=== PATIENT | female | born 1975 | race Caucasian/White ===

== ENCOUNTER 2017-11-16 08:11 | Emergency (ER) | END 2017-11-16 11:03 | disposition home or self-care (01) ==

== ENCOUNTER 2017-12-12 08:52 | Emergency (ER) | END 2017-12-12 09:55 | disposition home or self-care (01) ==

== ENCOUNTER 2018-08-29 10:40 | Emergency (ER) | END 2018-08-29 15:28 | disposition home or self-care (01) ==

== ENCOUNTER 2018-10-21 13:35 | Emergency (ER) | payer SELFPAY ==
[~2018-10-21] VITALS: Ht 167.6 cm; Wt 88.2 kg
[~2018-10-21 13:35] MED LIST: ACET325T33 PO; ASPI-831 PO; ATOR10TA65 PO; CLIN300C10 PO; DOCU-144 PO; HYDR-4011 PO; IBUP-1542 PO; ONDA4TAB14 PO; TOPI25TA PO
[2018-10-21 13:38] VITALS: BP 140/93; PULSE 67; RESP 20; Ht 167.6 cm; Wt 88.2 kg
== END 2018-10-21 16:14 | disposition left against medical advice (07) ==
LOC: FTE 13:35
DX: Z53.21 Procedure and treatment not carried out due to patient leaving prior to being seen by health care provider (principal)

== ENCOUNTER 2019-01-18 19:04 | Emergency (ER) | payer OTHER ==
[~2019-01-18] VITALS: Ht 157.5 cm; Wt 86.7 kg
[2019-01-18 19:10] VITALS: Ht 157.5 cm; Wt 86.7 kg
[2019-01-18] MEDS ORDERED: predniSONE 20 MG TAB PO ONE (21:00)
[2019-01-18] MEDS ORDERED: FAMOTIDINE 20 MG TAB PO ONE (21:00)
[2019-01-18] MEDS ORDERED: KETOROLAC 30 MG INJ IV STA (21:02)
[2019-01-18] MEDS ORDERED: SOD CHLORIDE 0.9% 1,000 ML IV ONE (21:30)
[2019-01-18] MEDS ORDERED: METOCLOPRAMIDE 10 MG INJ IV ONE (21:30)
[2019-01-18] MEDS ORDERED: DIPHENHYDRAMINE 50 MG INJ IM ONE (21:30)
--- NOTE | 2019-01-18 22:02 | ERD ---
ER Documentation Chief Complaint Chief Complaint states migraine headache x 3 days HPI 43-year-old female presents with complaint of migraine headache x3 days. Patient has history of previous migraine headaches previously on Topamax for preventive medications states to have run out of Topamax 2 weeks ago. Patient currently trying Tylenol for relief of migraine headache with no improvement. Admits to positive nausea, photophobia, sensitive to sounds, denies vomiting. She rates pain as 7 out of 10 in intensity and notes presentation similar to previous migraines. Patient also notes previous history of stroke in 2010 with residual left-sided deficits. She notes deficits increase with each migraine episode. Per patient family patient currently at baseline mental status. ROS All systems reviewed and are negative except as per history of present illness. Medications Home Meds Active Scripts Topiramate* (Topamax*) 25 Mg Tablet, 25 MG PO BID for migraine, #30 TAB Prov:KIMBERLYN PICHARDO PA-C 01/18/19 Ondansetron (Ondansetron Odt) 4 Mg Tab.rapdis, 4 MG PO Q6H PRN for NAUSEA AND/OR VOMITING, #10 TAB Prov:DUSTIN HOLDEN PA-C 08/29/18 Hydrocodone/Acetaminophen ([place] 5-325 Tablet) 1 Each Tablet, 1 TAB PO QHS PRN for PAIN, #7 TAB Prov:DUSTIN HOLDEN PA-C 08/29/18 Ibuprofen* (Motrin*) 600 Mg Tab, 600 MG PO Q6, #30 TAB Prov:DUSTIN HOLDEN PA-C 08/29/18 Acetaminophen* (Tylenol*) 325 Mg Tablet, 2 TAB PO Q4 PRN for PAIN AND OR ELEVATED TEMP, #30 TAB Prov:CHENTE SUAZO PA-C 12/12/17 Clindamycin Hcl* (Clindamycin Hcl*) 300 Mg Capsule, 300 MG PO TID for 7 Days, CAP Prov:CHENTE SUAZO PA-C 12/12/17 Docusate Sodium* (Colace*) 100 Mg Capsule, 100 MG PO TID, #30 CAP Prov:DUSTIN HOLDEN PA-C 11/16/17 Hydrocodone/Acetaminophen (B[place] 5-325 Tablet) 1 Each Tablet, 1 TAB PO QHS PRN for PAIN, #5 TAB Prov:DUSTIN HOLDEN PA-C 11/16/17 Topiramate* (Topamax*) 25 Mg Tab, 50 MG PO DAILY for 28 Days, BOTTLE Prov:PADMINI JENSEN MD 07/19/15 Atorvastatin Calcium (Atorvastatin Calcium) 10 Mg Tab, 10 MG PO HS for 28 Days, TAB Prov:PADMINI JENSEN MD 07/19/15 Aspirin (Aspirin) 81 Mg Chew, 81 MG PO DAILY for 28 Days, BOT Prov:PADMINI JENSEN MD 07/19/15 Allergies Allergies: Coded Allergies: Penicillins (Verified Allergy, Unknown, HIVES, 07/16/15) cephalexin (Verified Allergy, Unknown, HIVES, 07/16/15) PMhx/Soc History of Surgery: Yes (back surgery- disectomy, 2 c- section, full hysterectomy, gall blader rose mary) Anesthesia Reaction: Yes (SHAKING POST SURGERY) Hx Neurological Disorder: Yes (CVA 2011) Hx Respiratory Disorders: No Hx Cardiac Disorders: Yes (HTN) Hx Psychiatric Problems: No Hx Miscellaneous Medical Probl: No Hx Alcohol Use: No Hx Substance Use: No Hx Tobacco Use: No Smoking Status: Never smoker Physical Exam Vitals Vital Signs Date Temp Pulse Resp B/P (MAP) Pulse Ox O2 O2 Flow FiO2 Time Delivery Rate 01/18/19 98.0 57 18 112/68 98 Room Air 22:20 (83) 01/18/19 98.5 70 18 153/98 98 19:10 (116) Physical Exam Const: No acute distress Head: Atraumatic Eyes: Normal Conjunctiva. PERRL, EOMI. No visible nystagmus. ENT: Normal External Ears, Nose and Mouth. Neck: Full range of motion. No meningismus. No C-spine tenderness. Resp: Clear to auscultation bilaterally Cardio: Regular rate and rhythm, no murmurs Abd: Soft, non tender, non distended. Normal bowel sounds Skin: No petechiae or rashes Back: No midline or flank tenderness Ext: No cyanosis, or edema Neur: Awake and alert to person place and time. CNII-XII intact. [employer] strength equal. 5 out of 5 strength, DTR 2+, sensation intact and equal throughout. Negative Romberg. Negative pronator drift. Psych: Normal Mood and Affect Results 24 hrs Current Medications Medications Dose Sig/Alex Start Time Status Last (Trade) Ordered Route PRN Stop Time Admin Dose Reason Admin Prednisone 60 mg ONCE ONCE 01/18/19 DC (Prednisone) PO 21:00 01/18/19 21:00 Famotidine 40 mg ONCE ONCE 01/18/19 DC (Pepcid) PO 21:00 01/18/19 21:00 Ketorolac 30 mg ONCE STAT 01/18/19 DC 01/18/19 Tromethamine IV 21:02 21:28 (Toradol) 01/18/19 21:06 10 mg ONCE ONCE 01/18/19 DC 01/18/19 Metoclopramid IV 21:30 21:27 e HCl 01/18/19 21:31 (Reglan) 50 mg ONCE ONCE 01/18/19 DC 01/18/19 Diphenhydrami IM 21:30 21:30 ne HCl 01/18/19 21:31 (Benadryl) Sodium 1,000 ml @ Q1H ONCE 01/18/19 DC 01/18/19 Chloride 1,000 mls/hr IV 21:30 21:27 01/18/19 22:29 Procedures/MDM PROCEDURE: CT Brain without contrast. CLINICAL INDICATION: Migraines for 5 days and prior history of stroke TECHNIQUE: A CT of the brain was performed on a Conjecta CT scanner utilizing axial imaging from the skull base through the vertex without IV contrast. Multiplanar reformatted images were made. Images were reviewed on a PACS workstation. The CTDIvol is 39.46 mGy and the DLP is 634.23 mGycm. DICOM images are available. One of the following 3 dose reduction techniques were used during this CT examination: 1) Automated exposure control 2) Adjustment of the mA +/- kV according to patient size or 3) Use of iterative reconstruction technique COMPARISON: No available prior brain imaging FINDINGS: There is no intracranial hemorrhage, mass effect, or midline shift. No extra- axial fluid collection is seen. The ventricles and sulci are normal in size and configuration. Decreased attenuation is noted in the left anterior medial thalamus compatible with a chronic lacunar infarct. The visualized scalp and calvarium are normal. The bilateral orbits are normal. The bilateral paranasal sinuses, mastoid air cells and middle ear cavities are clear. IMPRESSION: 1. No evidence of acute intracranial hemorrhage, acute infarcts, or acute intracranial pathology 2. Chronic left anterior medial thalamic lacunar infarct MDM: This is a 43-year-old female who presented to the ED with complaint of migraine headache x3 days. Neurological exam unremarkable patient with no focal neuro deficits. However, given history history of previous stroke CT imaging of brain performed, no evidence of acute intracranial hemorrhage or intracranial pathology. She receives migraine cocktail consisting of IV fluids, Toradol, Benadryl, and Reglan. Receiving migraine cocktail patient admitted to im provement in symptoms. At this time patient is stable for discharge home with strict follow-up and ED precautions. Patient given prescription for short course refill of Topamax and advised to follow-up with PCP to obtain a refill of migraine preventive medicine. Patient counseled regarding ED return precautions and advised to present at the onset of any new or worsening symptoms. She expressed verbal understanding and agreement to treatment plan, all questions addressed and answered. Departure Diagnosis: Primary Impression: Migraine Condition: Good KIMBERLYN PICHARDO PA-C Jan 18, 2019 22:02
[2019-01-18] MEDS ORDERED: TOPI25TA PO (22:03)
[2019-01-18 22:20] VITALS: BP 112/68; PULSE 57; RESP 18
== END 2019-01-18 22:21 | disposition home or self-care (01) ==
LOC: FTE 19:04
DX: G43.909 Migraine, unspecified, not intractable, without status migrainosus (principal); I10 Essential (primary) hypertension; Z79.82 Long term (current) use of aspirin
CPT/HCPCS: 70450; 96361; 96372; 96374; 96375; J1200; J1885; J2765; J7030; Z7502

== ENCOUNTER 2019-01-21 07:58 | Emergency (ER) | payer OTHER ==
[~2019-01-21] VITALS: Ht 157.5 cm; Wt 72.0 kg
[2019-01-21 08:02] VITALS: BP 193/92; PULSE 74; RESP 16; Ht 157.5 cm; Wt 72.0 kg
[2019-01-21] MEDS ORDERED: IBUPROFEN 800 MG TAB PO ONE (08:30)
[2019-01-21] MEDS ORDERED: IBUP800T48 PO (09:16)
--- NOTE | 2019-01-21 10:42 | ERD ---
ER Documentation Chief Complaint Chief Complaint pt bib self with c/o right foot pain s/p falling last night at movies+bruis HPI 43-year-old female presenting with right foot pain after a fall at the movies last night. Patient took Tylenol with no alleviation. She has pain to the right great toenail. Patient has a history of migraines and stroke. Surgical history; , cholecystectomy, hysterectomy, back surgery and carpal tunnel.. Social history denies. ROS All systems reviewed and are negative except as per history of present illness. Medications Home Meds Active Scripts Ibuprofen* (Motrin*) 800 Mg Tab, 800 MG PO Q6, #30 TAB Prov:LILIA COLEMAN PA-C 01/21/19 Topiramate* (Topamax*) 25 Mg Tablet, 25 MG PO BID for migraine, #30 TAB Prov:KIMBERLYN PICHARDO PA-C 01/18/19 Ondansetron (Ondansetron Odt) 4 Mg Tab.rapdis, 4 MG PO Q6H PRN for NAUSEA AND/OR VOMITING, #10 TAB Prov:DUSTIN HOLDEN PA-C 08/29/18 Hydrocodone/Acetaminophen ([place] 5-325 Tablet) 1 Each Tablet, 1 TAB PO QHS PRN for PAIN, #7 TAB Prov:DUSTIN HOLDEN PA-C 08/29/18 Ibuprofen* (Motrin*) 600 Mg Tab, 600 MG PO Q6, #30 TAB Prov:DUSTIN HOLDEN PA-C 08/29/18 Acetaminophen* (Tylenol*) 325 Mg Tablet, 2 TAB PO Q4 PRN for PAIN AND OR ELEVATED TEMP, #30 TAB Prov:CHENTE SUAZO PA-C 12/12/17 Clindamycin Hcl* (Clindamycin Hcl*) 300 Mg Capsule, 300 MG PO TID for 7 Days, CAP Prov:CHENTE SUAZO PA-C 12/12/17 Docusate Sodium* (Colace*) 100 Mg Capsule, 100 MG PO TID, #30 CAP Prov:DUSTIN HOLDEN PA-C 11/16/17 Hydrocodone/Acetaminophen ([place] 5-325 Tablet) 1 Each Tablet, 1 TAB PO QHS PRN for PAIN, #5 TAB Prov:DUSTIN HOLDEN PA-C 11/16/17 Topiramate* (Topamax*) 25 Mg Tab, 50 MG PO DAILY for 28 Days, BOTTLE Prov:PADMINI JENSEN MD 07/19/15 Atorvastatin Calcium (Atorvastatin Calcium) 10 Mg Tab, 10 MG PO HS for 28 Days, TAB Prov:PADMINI JENSEN MD 07/19/15 Aspirin (Aspirin) 81 Mg Chew, 81 MG PO DAILY for 28 Days, BOT Prov:PADMINI JENSEN MD 07/19/15 Allergies Allergies: Coded Allergies: Penicillins (Verified Allergy, Unknown, HIVES, 07/16/15) cephalexin (Verified Allergy, Unknown, HIVES, 07/16/15) PMhx/Soc History of Surgery: Yes (back surgery- disectomy, 2 c- section, full hysterectomy, gall blader rose mary) Anesthesia Reaction: Yes (SHAKING POST SURGERY) Hx Neurological Disorder: Yes (CVA 2011) Hx Respiratory Disorders: No Hx Cardiac Disorders: Yes (HTN) Hx Psychiatric Problems: No Hx Miscellaneous Medical Probl: No Hx Alcohol Use: No Hx Substance Use: No Hx Tobacco Use: No Smoking Status: Former smoker FmHx Family History: No diabetes, No coronary disease, No other Physical Exam Vitals Vital Signs Date Temp Pulse Resp B/P (MAP) Pulse Ox O2 O2 Flow FiO2 Time Delivery Rate 01/21/19 98.3 74 16 193/92 98 08:02 (125) Physical Exam GENERAL: The patient is well-appearing, well-nourished, in no acute distress CHEST: Clear to auscultation bilaterally. There are no rales, wheezes or rhonchi. HEART: Regular rate and rhythm. No murmurs, clicks, rubs or gallops. EXTREMITIES: Equal pulses bilaterally. There is no peripheral clubbing, cyanosis or edema. No focal swelling or erythema. Full range of motion. Grossly neurovascularly intact. NEUROLOGIC: Motor strength in all 4 extremities with 5 out of 5 strength. Sensation grossly intact. SKIN: Bruising noted to the right great toe with no lacerations or abrasions. Bruising extends down the medial aspect of the right foot Results 24 hrs Current Medications Medications Dose Sig/Alex Start Time Status Last (Trade) Ordered Route PRN Stop Time Admin Dose Reason Admin Ibuprofen 800 mg ONCE ONCE 01/21/19 DC 01/21/19 (Motrin) PO 08:30 08:17 01/21/19 08:31 Procedures/MDM DIAGNOSTIC IMAGING REPORT Patient: RAAD BATES : 1975 Age: 43 Sex: F [id number] DOS: 01/21/19 0813 Ordering MD: TIFFANIE COLEMAN PA-C Location: [facility] Room/Bed: PROCEDURE: XR Right Foot CLINICAL INDICATION: Pain TECHNIQUE: AP, oblique, and lateral radiographs were submitted. COMPARISON: 05/10/2016 FINDINGS: Osseous structures: appear well mineralized and intact with no fracture or destructive process identified. A small plantar spur is again seen off the calcaneus. Joint spaces: are well maintained, with no significant spurring, erosion or joint effusion evident. Soft tissues: appear unremarkable. IMPRESSION: 1. Small plantar spur again seen off the calcaneus. 2. Otherwise, unremarkable right foot series. ER Course: Social applied. Neuro intact pre-and post shoe application. MDM: 43-year-old female presenting with toe contusion. I have low suspicion for acute fracture dislocation. His x-rays are within normal limits. Patient was discharged with supportive medications and told to follow-up with primary care within 1-2 days for close evaluation. Patient is told if symptoms change or worsen to return immediately to the ER. All questions answered at discharge Departure Diagnosis: Primary Impression: Foot contusion Condition: Stable Patient Instructions: Contusion, Foot Additional Instructions: FOLLOW UP WITH YOUR PRIMARY CARE PHYSICIAN TOMORROW.Return to this facility if you are not improving as expected. LILIA COLEMAN PA-C Jan 21, 2019 10:42
== END 2019-01-21 09:41 | disposition home or self-care (01) ==
LOC: FTE 07:58
DX: S90.31XA Contusion of right foot, initial encounter (principal); I10 Essential (primary) hypertension; W18.39XA Other fall on same level, initial encounter; Y92.9 Unspecified place or not applicable; Z79.82 Long term (current) use of aspirin; Z87.891 Personal history of nicotine dependence
CPT/HCPCS: 73630; Z7502; Z7610

== ENCOUNTER 2019-02-27 09:08 | Emergency (ER) | payer OTHER ==
[~2019-02-27] VITALS: Ht 157.5 cm; Wt 88.0 kg
[~2019-02-27 09:08] MED LIST changes: +IBUP800T48 PO
[2019-02-27 09:16] VITALS: Ht 157.5 cm; Wt 88.0 kg
[2019-02-27] MEDS ORDERED: SOD CHLORIDE 0.9% 1,000 ML IV STA (10:56)
[2019-02-27] MEDS ORDERED: PROCHLORPERAZINE 10 MG INJ IV STA (10:56)
[2019-02-27] MEDS ORDERED: DIPHENHYDRAMINE 50 MG INJ IV STA (10:56)
[2019-02-27] MEDS ORDERED: KETOROLAC 30 MG INJ IV STA (10:56)
--- NOTE | 2019-02-27 12:20 | ERD ---
ER Documentation Chief Complaint Chief Complaint HEADACHE X 3 DAYS HPI This is a 43-year-old female patient who presents to the emergency room with complaint of migraine headache x3 days. Patient has history of migraines and states this is the typical migraine headache pain for her. States she wants to the movies 3 days ago and migraine started after. She has been taking Topamax and ibuprofen without relief. Patient states her pain is throbbing and stabbing bilateral parietal and back of neck. + photophobia, +nausea. No fevers. ROS All systems reviewed and are negative except as per history of present illness. Medications Home Meds Active Scripts Ibuprofen* (Motrin*) 800 Mg Tab, 800 MG PO Q6, #30 TAB Prov:LILIA COLEMAN PA-C 01/21/19 Topiramate* (Topamax*) 25 Mg Tablet, 25 MG PO BID for migraine, #30 TAB Prov:KIMBERLYN PICHARDO PA-C 01/18/19 Ondansetron (Ondansetron Odt) 4 Mg Tab.rapdis, 4 MG PO Q6H PRN for NAUSEA AND/OR VOMITING, #10 TAB Prov:DUSTIN HOLDEN PA-C 08/29/18 Hydrocodone/Acetaminophen ([place] 5-325 Tablet) 1 Each Tablet, 1 TAB PO QHS PRN for PAIN, #7 TAB Prov:DUSTIN HOLDEN PA-C 08/29/18 Ibuprofen* (Motrin*) 600 Mg Tab, 600 MG PO Q6, #30 TAB Prov:DUSTIN HOLDEN PA-C 08/29/18 Acetaminophen* (Tylenol*) 325 Mg Tablet, 2 TAB PO Q4 PRN for PAIN AND OR ELEVATED TEMP, #30 TAB Prov:CHENTE SUAZO PA-C 12/12/17 Clindamycin Hcl* (Clindamycin Hcl*) 300 Mg Capsule, 300 MG PO TID for 7 Days, CAP Prov:CHENTE SUAZO PA-C 12/12/17 Docusate Sodium* (Colace*) 100 Mg Capsule, 100 MG PO TID, #30 CAP Prov:DUSTIN HOLDEN PA-C 11/16/17 Hydrocodone/Acetaminophen ([place] 5-325 Tablet) 1 Each Tablet, 1 TAB PO QHS PRN for PAIN, #5 TAB Prov:DUSTIN HOLDEN PA-C 11/16/17 Topiramate* (Topamax*) 25 Mg Tab, 50 MG PO DAILY for 28 Days, BOTTLE Prov:PADMINI JENSEN MD 07/19/15 Atorvastatin Calcium (Atorvastatin Calcium) 10 Mg Tab, 10 MG PO HS for 28 Days, TAB Prov:PADMINI JENSEN MD 07/19/15 Aspirin (Aspirin) 81 Mg Chew, 81 MG PO DAILY for 28 Days, BOT Prov:PADMINI JENSEN MD 07/19/15 Allergies Allergies: Coded Allergies: Penicillins (Verified Allergy, Unknown, HIVES, 07/16/15) cephalexin (Verified Allergy, Unknown, HIVES, 07/16/15) PMhx/Soc History of Surgery: Yes (back surgery- disectomy, 2 c- section, full hysterectomy, gall blader rose mary) Anesthesia Reaction: Yes (SHAKING POST SURGERY) Hx Neurological Disorder: Yes (CVA 2011) Hx Respiratory Disorders: No Hx Cardiac Disorders: Yes (HTN) Hx Psychiatric Problems: No Hx Miscellaneous Medical Probl: No Hx Alcohol Use: No Hx Substance Use: No Hx Tobacco Use: No FmHx Family History: No diabetes, No coronary disease, No other Physical Exam Vitals Vital Signs Date Temp Pulse Resp B/P (MAP) Pulse Ox O2 O2 Flow FiO2 Time Delivery Rate 02/27/19 97.5 58 18 142/71 100 Room Air 12:30 (94) 02/27/19 98.2 64 19 140/91 98 09:16 (107) Physical Exam Const: No acute distress Head: Atraumatic Eyes: Normal Conjunctiva, PERRL, EOMI ENT: Normal External Ears, Nose and Mouth. Pharynx pink, moist, no petechiae lesions or exudate Neck: Full range of motion. No meningismus. No lymphadenopathy, no thyromegaly Resp: Clear to auscultation bilaterally, no wheezing, no rales, no rhonchi Cardio: Regular rate and rhythm, no murmurs Abd: Soft, non tender, non distended. Normal bowel sounds. No hepato-or splenomegaly Skin: No petechiae or rashes, no bruising or hematomas Back: No midline or flank tenderness Neur: Awake and alert, clear speech, steady gait, negative Romberg, no prona tor drift, equal smile, sensation equal and intact Psych: Normal Mood and Affect Results 24 hrs Laboratory Tests Test 02/27/19 11:05 POC Beta HCG, Qualitative NEGATIVE Current Medications Medications Dose Sig/Alex Start Time Status Last (Trade) Ordered Route PRN Stop Time Admin Dose Reason Admin Sodium 1,000 ml @ Q1H STAT 02/27/19 DC 02/27/19 Chloride 1,000 mls/hr IV 10:56 11:08 02/27/19 11:55 10 mg ONCE STAT 02/27/19 DC 02/27/19 Prochlorperaz IV 10:56 11:08 ine 02/27/19 10:59 (Compazine Inj) Ketorolac 30 mg ONCE STAT 02/27/19 DC 02/27/19 Tromethamine IV 10:56 11:17 (Toradol) 02/27/19 10:59 25 mg ONCE STAT 02/27/19 DC 02/27/19 Diphenhydrami IV 10:56 11:08 ne HCl 02/27/19 10:59 (Benadryl) Procedures/MDM This is a 43-year-old female patient who presents to the emergency room with complaint of migraine headache x3 days. ED COURSE: The patient was stable throughout ED course. DIAGNOSTIC IMAGING: Not indicated as there were no neurological deficits. MEDICATIONS GIVEN: Saline, Compazine, Toradol, Benadryl, normal saline Patient tolerated medication well with no adverse reactions. Patient reported improvement in pain. MDM: Upon reevaluation and completion of treatment patient states her headache has resolved, photophobia has resolved, no longer nauseated. The patient was well-appearing with VSS and without neurological deficits at time of reevaluation and discharge. Clinical and diagnostic exam not suggestive of infection, intracranial process, SAH, SDH, neoplasm, meningitis, encephalitis, aneurysm, thrombus, temporal arteritis, sinusitis. The patient has been provided with instructions on self-care including use of analgesia, reducing triggers, and need for close follow-up with primary care physician within 1-2 days for reevaluation. The patient has been instructed to return immediately for worsening symptoms, change in pattern of current symptoms, or other acute problems. Patient states she has appointment with her neurologist next week. DISPOSITION: The patient has been discharge home to follow-up with community physician. Departure Diagnosis: Primary Impression: Migraine Migraine type: chronic without aura Condition: Stable Patient Instructions: Migraines and Cluster Headaches Additional Instructions: Thank you very much for allowing us to participate in your care. Your health and safety is our top priority at [facility]. Call your primary care doctor TOMORROW for an appointment during the next 2-4 days and bring all the information and medications prescribed. Have prescriptions filled and follow precisely the directions on the label. If the symptoms get worse and your provider is unavailable, return to the Emergency Department immediately. RAVINDER GARCIA NP February 27, 2019 12:20
[2019-02-27 12:30] VITALS: BP 142/71; PULSE 58; RESP 18
== END 2019-02-27 12:31 | disposition home or self-care (01) ==
LOC: FTE 09:08
DX: G43.909 Migraine, unspecified, not intractable, without status migrainosus (principal); I10 Essential (primary) hypertension; Z86.73 Personal history of transient ischemic attack (TIA), and cerebral infarction without residual deficits; Z79.82 Long term (current) use of aspirin
CPT/HCPCS: 81025; 96361; 96374; 96375; J0780; J1200; J1885; J7030; Z7502

== ENCOUNTER 2019-04-24 16:44 | Emergency (ER) | payer OTHER ==
[~2019-04-24] VITALS: Ht 157.5 cm; Wt 87.8 kg
[2019-04-24 17:01] VITALS: BP 133/71; PULSE 73; RESP 17; Ht 157.5 cm; Wt 87.8 kg
[2019-04-24] MEDS ORDERED: SULF1TAB31 PO (17:51)
--- NOTE | 2019-04-24 22:20 | ERD ---
ER Documentation Chief Complaint Chief Complaint PAIN/REDNESS ON RIGHT THIGH, LOWER RIGHT LEG HPI 43-year-old female with history of CVA presents for right thigh and lower leg redness and pain x1 day. She thinks she may have been bitten by a bug. States that the bumps were small initially however started spreading. She notes 7 out of 10 pain over the right leg, the pain is described as a warm sensation, nonradiating. No alleviating factors or worsening factors. She denies fevers or chills. Denies chest pain or shortness of breath. No other modifying factors noted, no treatment tried at home. ROS All systems reviewed and are negative except as per history of present illness. Medications Home Meds Active Scripts Sulfamethoxazole/Trimethoprim* (Bactrim Ds* Tablet) 1 Each Tablet, 1 TAB PO BID for skin infection for 7 Days, #14 TAB Prov:LUCAS MOON DO 04/24/19 Ibuprofen* (Motrin*) 800 Mg Tab, 800 MG PO Q6, #30 TAB Prov:LILIA COLEMAN PA-C 01/21/19 Topiramate* (Topamax*) 25 Mg Tablet, 25 MG PO BID for migraine, #30 TAB Prov:KIMBERLYN PICHARDO PA-C 01/18/19 Ondansetron (Ondansetron Odt) 4 Mg Tab.rapdis, 4 MG PO Q6H PRN for NAUSEA AND/OR VOMITING, #10 TAB Prov:DUSTIN HOLDEN PA-C 08/29/18 Hydrocodone/Acetaminophen ([place] 5-325 Tablet) 1 Each Tablet, 1 TAB PO QHS PRN for PAIN, #7 TAB Prov:DUSTIN HOLDEN PA-C 08/29/18 Ibuprofen* (Motrin*) 600 Mg Tab, 600 MG PO Q6, #30 TAB Prov:DUSTIN HOLDEN PA-C 08/29/18 Acetaminophen* (Tylenol*) 325 Mg Tablet, 2 TAB PO Q4 PRN for PAIN AND OR ELEVATED TEMP, #30 TAB Prov:CHENTE SUAZO PA-C 12/12/17 Clindamycin Hcl* (Clindamycin Hcl*) 300 Mg Capsule, 300 MG PO TID for 7 Days, CAP Prov:CHENTE SUAZO PA-C 12/12/17 Docusate Sodium* (Colace*) 100 Mg Capsule, 100 MG PO TID, #30 CAP Prov:DUSTIN HOLDEN PA-C 11/16/17 Hydrocodone/Acetaminophen ([place] 5-325 Tablet) 1 Each Tablet, 1 TAB PO QHS PRN for PAIN, #5 TAB Prov:DUSTIN HOLDEN PA-C 11/16/17 Topiramate* (Topamax*) 25 Mg Tab, 50 MG PO DAILY for 28 Days, BOTTLE Prov:PADMINI JENSEN MD 07/19/15 Atorvastatin Calcium (Atorvastatin Calcium) 10 Mg Tab, 10 MG PO HS for 28 Days, TAB Prov:PADMINI JENSEN MD 07/19/15 Aspirin (Aspirin) 81 Mg Chew, 81 MG PO DAILY for 28 Days, BOT Prov:PADMINI JENSEN MD 07/19/15 Allergies Allergies: Coded Allergies: Penicillins (Verified Allergy, Unknown, HIVES, 07/16/15) cephalexin (Verified Allergy, Unknown, HIVES, 07/16/15) PMhx/Soc History of CVA History of Surgery: Yes (back surgery- disectomy, 2 c- section, full hysterectomy, gall blader rose mary) Anesthesia Reaction: Yes (SHAKING POST SURGERY) Hx Neurological Disorder: Yes (CVA 2011) Hx Respiratory Disorders: No Hx Cardiac Disorders: Yes (HTN) Hx Psychiatric Problems: No Hx Miscellaneous Medical Probl: Yes (MIGRAINE) Hx Alcohol Use: No Hx Substance Use: No Hx Tobacco Use: No FmHx Family History: No coronary disease Physical Exam Vitals Vital Signs Date Temp Pulse Resp B/P (MAP) Pulse Ox O2 O2 Flow FiO2 Time Delivery Rate 04/24/19 98.3 73 17 133/71 97 17:01 (91) Physical Exam Const: No acute distress Resp: Clear to auscultation bilaterally Cardio: Regular rate and rhythm, no murmurs, bilateral dorsalis pedis pulses intact Abd: Soft, non tender, non distended. Normal bowel sounds Skin: Right thigh and right lower leg 2 cm area of redness noted x2, there is increased warmth, blanchable Back: No midline or flank tenderness Ext: No cyanosis, or edema Neur: Awake and alert, bilateral lower extremity sensation intact Psych: Normal Mood and Affect Procedures/MDM Medical Decision Making: Differential diagnosis includes but not limited to allergic reaction, dermatitis, cellulitis, viral syndrome, fungal infection, erythrasma Patient appeared well on physical exam. No acute distress, speaking in full sentences, there is no tongue swelling Physical examination consistent with cellulitis Low suspicion for deep space infection, Chidi Norris symdrome, toxic epiderma necrolysis Prescription(s): Patient given prescription for supportive medication(s) and oral antibiotic. Patient advised to follow up with PCP in 1-2 days. Patient advised to return to ED for new or worsening symptoms. Patient stable on discharge from the ED. Disclaimer: Inadvertent spelling and grammatical errors are likely due to EHR/dictation software use and do not reflect on the overall quality of patient care. Also, please note that the electronic time recorded on this note does not necessarily reflect the actual time of the patient encounter. Departure Diagnosis: Primary Impression: Cellulitis Site of cellulitis: extremity Site of cellulitis of extremity: lower extremity Laterality: right Qualified Codes: L03.115 - Cellulitis of right lower limb Additional Impression: Insect bite Encounter type: initial encounter Site of insect bite: thigh Laterality: right Qualified Codes: S70.361A - Insect bite (nonvenomous), right thigh, initial encounter; W57.XXXA - Bitten or stung by nonvenomous insect and other nonvenomous arthropods, initial encounter Condition: Fair Patient Instructions: Cellulitis Additional Instructions: Call your primary care doctor TOMORROW for an appointment during the next 1-2 days.See the doctor sooner or return here if your condition worsens before your appointment time. LUCAS MOON DO Apr 24, 2019 22:20
== END 2019-04-24 17:53 | disposition home or self-care (01) ==
LOC: E/R 16:44
DX: S70.361A Insect bite (nonvenomous), right thigh, initial encounter (principal); L03.115 Cellulitis of right lower limb; I10 Essential (primary) hypertension; W57.XXXA Bitten or stung by nonvenomous insect and other nonvenomous arthropods, initial encounter; Y92.9 Unspecified place or not applicable; Z79.82 Long term (current) use of aspirin; Z86.73 Personal history of transient ischemic attack (TIA), and cerebral infarction without residual deficits
CPT/HCPCS: 99283